=== PATIENT | male | born 1935 | race Caucasian/White ===

== ENCOUNTER → 2016-06-26 | Outpatient (CLI) | payer OTHER ==
[2016-06-26 13:42] LABS: ALT/SGPT 38 U/L (12-78); AST/SGOT 27 U/L (15-37); BLOOD UREA NITROGEN 24 mg/dl (7-18); BUN/CREATININE RATIO 26.7 (10-20); CARBON DIOXIDE 31 mmol/L (21-32); CHLORIDE 101 mmol/L (98-107); CHOLESTEROL 143 mg/dl (0-200); GLUCOSE 107 mg/dl (70-99); MAGNESIUM 2.4 mg/dl (1.8-2.4); SODIUM 139 mmol/L (136-145); TRIGLYCERIDES 147 mg/dl (0-150); VERY LOW DENSITY LIPOPROT CALC 29 mg/dl
[2016-06-26 13:43] LABS: CALCIUM 9.4 mg/dl (8.5-10.1)
[2016-06-26 13:47] LABS: CHOLESTEROL/HDL RATIO 4.8; HDL CHOLESTEROL 30 mg/dl; LDL CHOLESTEROL CALCULATED 84 mg/dl
== END | disposition home or self-care (01) ==
LOC: C.LABMFLN 08:12
PROVIDERS: ATTEND Family Medicine
DX: I48.91 Unspecified atrial fibrillation (principal); E78.5 Hyperlipidemia, unspecified; I10 Essential (primary) hypertension

== ENCOUNTER → 2017-01-07 | Outpatient (CLI) | payer OTHER ==
[2017-01-07 13:36] LABS: ALT/SGPT 40 U/L (12-78); AST/SGOT 30 U/L (15-37); BLOOD UREA NITROGEN 16 mg/dl (7-18); BUN/CREATININE RATIO 17.5 (10-20); CALCIUM 8.9 mg/dl (8.5-10.1); CARBON DIOXIDE 32 mmol/L (21-32); CHLORIDE 100 mmol/L (98-107); CREATININE 0.91 mg/dl (0.60-1.40); GLUCOSE 108 mg/dl (70-99); POTASSIUM 4.1 mmol/L (3.5-5.1); SODIUM 134 mmol/L (136-145)
[2017-01-07 13:40] LABS: CHOLESTEROL 128 mg/dl (0-200); CHOLESTEROL/HDL RATIO 4.4; HDL CHOLESTEROL 29 mg/dl; LDL CHOLESTEROL CALCULATED 74 mg/dl; TRIGLYCERIDES 127 mg/dl (0-150); VERY LOW DENSITY LIPOPROT CALC 25 mg/dl
== END | disposition home or self-care (01) ==
LOC: C.LABMFLN 08:03
PROVIDERS: ATTEND Family Medicine
DX: I48.91 Unspecified atrial fibrillation (principal); E78.5 Hyperlipidemia, unspecified; I10 Essential (primary) hypertension